=== PATIENT | female | born 1975 | race Native Hawaiian/Other Pacific Islander ===

== ENCOUNTER 2016-11-04 00:16 | Outpatient (CLI) | payer BC ==
[~2016-11-04 00:16] MED LIST: ADDERALL20 MG PO; ALLEGRA ALRG180 M1 PO; BENZ100C8 PO; HYDR10TA51 PO; LEVO0.0529 PO; PRED20TA27 PO
== END 2016-11-04 19:29 | disposition home or self-care (01) ==
LOC: RAD 00:16
DX: R91.1 Solitary pulmonary nodule (principal)

== ENCOUNTER 2016-11-06 09:59 | Outpatient (CLI) | payer BC | END 2016-11-06 19:56 | disposition home or self-care (01) | LOC: RESP 09:59 | DX: R91.1 Solitary pulmonary nodule (principal) | CPT/HCPCS: 94664 ==

== ENCOUNTER 2016-12-10 08:56 | Outpatient (CLI) | payer BC | END 2016-12-10 19:13 | disposition home or self-care (01) | LOC: CT 08:56 | DX: R91.1 Solitary pulmonary nodule (principal) ==

== ENCOUNTER 2016-12-25 08:59 | Outpatient (CLI) | payer BC | END 2016-12-25 19:48 | disposition home or self-care (01) | LOC: MAMMO 08:59 | DX: Z12.31 Encounter for screening mammogram for malignant neoplasm of breast (principal) | CPT/HCPCS: G0202-TC ==

== ENCOUNTER 2020-07-30 20:40 | Emergency (ER) | payer OTHER ==
[~2020-07-30] VITALS: Ht 162.6 cm; Wt 59.0 kg
[2020-07-30 21:25] LABS: PLATELET COUNT 260 K/uL (152-353)
[2020-07-30 21:35] LABS: POTASSIUM 3.4 mmol/L (3.6-5.2); SODIUM 137 mmol/L (136-145)
[2020-07-31 00:33] VITALS: BP 99/55; TEMP 97.7
== END 2020-07-31 00:34 | disposition home or self-care (01) ==
LOC: ED 20:56
PROVIDERS: Family Medicine
DX: I20.8 Other forms of angina pectoris (principal); K52.89 Other specified noninfective gastroenteritis and colitis; G43.909 Migraine, unspecified, not intractable, without status migrainosus; F17.210 Nicotine dependence, cigarettes, uncomplicated
CPT/HCPCS: 36415; 80053; 82550; 84484; 85027; 87635; 93005; 96372; 96374; 99284; J3030; U0003

== ENCOUNTER 2020-10-08 21:17 | Outpatient (CLI) | payer OTHER ==
[2020-10-08 22:10] LABS: PLATELET COUNT 261 K/uL (152-353)
[2020-10-08 22:30] LABS: POTASSIUM 4.1 mmol/L (3.6-5.2)
== END 2020-10-08 22:05 | disposition home or self-care (01) ==
LOC: LABW 21:17
PROVIDERS: ATTEND Nurse Practitioner Family
DX: R94.6 Abnormal results of thyroid function studies (principal)
CPT/HCPCS: 80053; 80061; 82306; 83036; 84439; 84443; 84481; 85027

== ENCOUNTER 2021-03-05 13:54 | Outpatient (CLI) | payer OTHER | END 2021-03-05 21:37 | disposition home or self-care (01) | LOC: LAB 13:54 | PROVIDERS: ATTEND Nurse Practitioner Family | DX: R53.83 Other fatigue (principal); R53.81 Other malaise; R68.82 Decreased libido | CPT/HCPCS: 82670; 83001; 84403 ==

== ENCOUNTER 2021-11-26 06:11 | Outpatient (CLI) | payer OTHER ==
[2021-11-26 06:29] LABS: PLATELET COUNT 233 K/uL (152-353)
[2021-11-26 08:33] LABS: POTASSIUM 3.8 mmol/L (3.6-5.2)
== END 2021-11-26 19:29 | disposition home or self-care (01) ==
LOC: LABW 06:11
PROVIDERS: ATTEND Nurse Practitioner Family
DX: R53.83 Other fatigue (principal); M19.90 Unspecified osteoarthritis, unspecified site; E03.9 Hypothyroidism, unspecified; G25.81 Restless legs syndrome; F98.8 Other specified behavioral and emotional disorders with onset usually occurring in childhood and adolescence; I25.10 Atherosclerotic heart disease of native coronary artery without angina pectoris; M06.9 Rheumatoid arthritis, unspecified; R68.82 Decreased libido; R53.81 Other malaise; E78.5 Hyperlipidemia, unspecified; Z79.899 Other long term (current) drug therapy
CPT/HCPCS: 36415; 80053; 80061; 82306; 82607; 82670; 83001; 83036; 84403; 84439; 84443; 85027

== ENCOUNTER 2022-09-02 16:29 | Outpatient (CLI) | payer OTHER ==
[2022-09-02 16:42] LABS: PLATELET COUNT 223 K/uL (152-353)
[2022-09-03 06:03] LABS: POTASSIUM 4.2 mmol/L (3.6-5.2)
== END 2022-09-02 19:17 | disposition home or self-care (01) ==
LOC: LABW 16:29
PROVIDERS: ATTEND Nurse Practitioner Family
DX: F98.8 Other specified behavioral and emotional disorders with onset usually occurring in childhood and adolescence (principal); E03.8 Other specified hypothyroidism; G25.81 Restless legs syndrome; E78.49 Other hyperlipidemia; M06.9 Rheumatoid arthritis, unspecified; M19.90 Unspecified osteoarthritis, unspecified site; R68.82 Decreased libido; R53.81 Other malaise; R53.83 Other fatigue; I25.10 Atherosclerotic heart disease of native coronary artery without angina pectoris
CPT/HCPCS: 80053; 80061; 83036; 84439; 84443; 85027